=== PATIENT | male | born 1960 | race American Indian/Alaskan Native ===

== ENCOUNTER 2019-04-23 09:55 | Outpatient (CLI) | payer BC ==
[2019-04-23 11:39] LABS: Basophils # (Auto) 0.1 K/mm3 (0.0-0.1); Basophils % (Auto) 0.8 % (0.0-1.8); Eosinophils # (Auto) 0.2 K/mm3 (0.0-0.4); Eosinophils % (Auto) 2.3 % (0.0-4.3); Hemoglobin 14.2 gm/dl (11.8-15.2); Lymphocytes # (Auto) 1.9 K/mm3 (1.2-5.4); Lymphocytes % (Auto) 18.2 % (13.4-35.0); Mean Corpuscular HGB Conc 34 % (32-34); Mean Corpuscular Volume 88 fl (84-94); Monocytes # (Auto) 0.8 K/mm3 (0.0-0.8); Monocytes % (Auto) 7.3 % (0.0-7.3); Platelet Count 249 K/mm3 (140-440); Red Blood Count 4.77 M/mm3 (3.65-5.03); Red Cell Distribution Width 13.1 % (13.2-15.2)
[2019-04-23 12:10] LABS: Alanine Aminotransferase 15 units/L (7-56); Albumin 4.4 g/dL (3.9-5); BUN/Creatinine Ratio 25; Blood Urea Nitrogen 27 mg/dL (9-20); Calcium 9.8 mg/dL (8.4-10.2); Chol/HDL Ratio 3.17 %; HDL Cholesterol 67 mg/dL (40-59); Hemolysis Index 10; LDL Cholesterol,Direct 137 mg/dL (50-130)
[2019-04-26 15:00] LABS: Vitamin D, 25-OH, D2 <4 ng/mL
== END 2019-04-23 09:56 | disposition home or self-care (01) ==
LOC: LAB 09:55
PROVIDERS: ATTEND Internal Medicine
DX: Z12.5 Encounter for screening for malignant neoplasm of prostate (principal); Z13.21 Encounter for screening for nutritional disorder; Z13.29 Encounter for screening for other suspected endocrine disorder; E78.5 Hyperlipidemia, unspecified
CPT/HCPCS: 36415; 80053; 80061; 82306; 82607; 83036; 84153; 84443; 85025

== ENCOUNTER 2019-07-06 11:06 | Outpatient (CLI) | payer BC ==
--- NOTE | 2019-07-06 12:39 | XRay Report ---
RIGHT ANKLE 3 VIEWS INDICATION / CLINICAL INFORMATION: Right ankle pain since Saturday. COMPARISON: None available. FINDINGS: BONES / JOINT(S): There are are old posttraumatic changes involving the medial malleolus inferiorly. There is moderate spurring at the insertion of the Achilles tendon on the calcaneus. There is a tiny plantar calcaneal spur. There are degenerative changes involving the dorsum of the midfoot. I see no evidence of acute fracture, subluxation or destructive lesion. SOFT TISSUES: There is mild soft tissue swelling overlying the medial malleolus. ADDITIONAL FINDINGS: None. Signer Name: Lawrence Zuniga MD Signed: 07/06/2019 12:34 PM Workstation Name: [id number]
== END 2019-07-06 11:07 | disposition home or self-care (01) ==
LOC: EDBD 11:06 → XRAY 11:06
PROVIDERS: ATTEND Internal Medicine
DX: M19.071 Primary osteoarthritis, right ankle and foot (principal); M77.31 Calcaneal spur, right foot; M79.89 Other specified soft tissue disorders

== ENCOUNTER → 2020-09-11 | Outpatient (CLI) | payer BC | END | disposition home or self-care (01) | LOC: SLR 11:00 | PROVIDERS: ATTEND Internal Medicine | DX: G47.30 Sleep apnea, unspecified (principal) | CPT/HCPCS: G0399 ==